=== PATIENT | female | born 1980 | race Caucasian/White ===

== ENCOUNTER 2024-11-30 20:49 | Emergency (ER) | payer BC, SELFPAY ==
[2024-11-30 20:51] VITALS: BP 140/86
[2024-11-30 23:05] VITALS: BMI 23.6
[2024-12-01 01:14] VITALS: BP 121/83
[2024-12-01 02:00] VITALS: BP 125/79
--- NOTE | 2024-12-01 02:39 | ED.MUSCINJ ---
HPI-Injury
General
Chief Complaint: Musculo-Skeletal Complaint
Source: patient
Exam Limitations: none
Time Seen by Provider: 12/01/24 01:16
Nursing documentation reviewed up to this point in time: agreed with
History of Present Illness-Injury
Initial Injury comments:
Note:
CHIEF COMPLAINT(S)
Right knee pain following a fall while dancing.
HISTORY OF PRESENT ILLNESS
The patient is a 43-year-old female with no significant past medical history who presents with right knee pain following an incident while dancing. She reports that she was performing a jump and, upon landing, her sneaker got caught, causing her
knee to be pulled under her. She experiences severe pain primarily when the knee is straightened or rotated [id number] and describes tenderness in multiple areas around the knee. The patient attempted to straighten the knee immediately after the
fall but has been unable to bear weight on it effectively since. She denies numbness or pain extending beyond the knee and has no history of previous knee injuries or back pain. The knee feels worse when bent and more comfortable when straightened.
EXTERNAL RECORDS REVIEWED
The medical team reviewed an X-ray of the patients knee, which showed no fractures but indicated effusion, suggesting possible soft tissue injury rather than bone damage.
CHRONIC MEDICAL CONDITIONS SIGNIFICANTLY AFFECTING CARE
The patient reports a history of lupus for which she takes hydroxychloroquine (Plaquenil).
SOCIAL HISTORY
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
PHYSICAL EXAM
General: Alert, no acute distress.
Skin: Warm, dry.
Head: Normocephalic, atraumatic.
Neck: Supple, trachea midline.
Eye, Ear, Nose, and Throat: Oral mucosa moist.
Cardiovascular: Normal peripheral perfusion, no edema.
Respiratory: Respirations are non-labored.
Gastrointestinal: Abdomen nondistended.
Back: Normal range of motion, Normal alignment.
Musculoskeletal: Right knee tenderness on palpation, pain on extension and lateral movement, mild effusion noted. Normal range of motion and strength in other extremities.
Neurological: Alert and oriented to person, place, time, and situation, no focal neurological deficit observed.
Psychiatric: Cooperative, appropriate mood & affect.
PLAN
- The patient will be immobilized with a knee brace and provided crutches for wwj-ydqgwu-[id number] mobility to prevent further injury.
- Recommend icing the knee to reduce swelling and advise against the use of nonsteroidal anti-inflammatory drugs (NSAIDs) other than those prescribed, given the patients lupus medication.
- Prescribe acetaminophen (Tylenol) for pain management.
- Advise follow-up with an librarian specialist for further assessment, including possible MRI to evaluate for ligamentous or meniscal injury.
- Instruct the patient on keeping the knee brace off during rest at night to avoid unnecessary discomfort.
- Discussed the importance of avoiding weight-bearing activities and minimizing knee movement to prevent additional injury.
- Encourage elevation of the knee when resting.
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
DIFFERENTIAL DIAGNOSIS
The Differential Diagnosis includes, in no particular order and is not limited to:
1. Medial Collateral Ligament (MCL) Sprain
2. Lateral Collateral Ligament (LCL) Sprain
3. Anterior Cruciate Ligament (ACL) Tear
4. Posterior Cruciate Ligament (PCL) Tear
5. Meniscal Tear
6. Patellar Dislocation
7. Knee Effusion Secondary to Trauma
8. Tibial Plateau Fracture (although less likely due to negative X-ray findings)
9. Pes Anserine Bursitis
10. Infrapatellar Fat Pad Impingement
Disposition:
SUMMARY OF ENCOUNTER
The patient is a 43-year-old female who presented to the emergency department with right knee pain following a fall while dancing. During a jump, she landed awkwardly on her right leg, causing severe immediate pain. Although she could ambulate
briefly, she experienced swelling. An X-ray was reviewed, showing no fractures but indicating effusion, suggesting a soft tissue injury. Due to the nature of her injury and symptoms, a knee brace and crutches were provided to prevent further strain
and aid mobility.
PLAN
The patient will be immobilized with a knee brace and provided crutches for mtm-ylojyl-jjwnsbq mobility. She was advised to apply ice to the knee to reduce swelling. Acetaminophen was suggested for pain management. Follow-up with an orthopedic
specialist will be necessary for further assessment, including a potential MRI to evaluate for ligamentous or meniscal injury. The patient was instructed to avoid weight-bearing activities and to elevate the knee when resting.
INDEPENDENT REVIEW OF LABS AND INTERPRETATION OF TESTS
My independent review of the X-ray indicates no fractures but shows knee effusion, consistent with a possible soft tissue injury.
PATIENT EDUCATION AND COUNSELING
The patient was educated on the importance of immobilizing the knee and using crutches to prevent further injury. She was informed about avoiding weight-bearing activities and minimizing knee movement. Information on the potential diagnosis and
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
FOLLOW-UP INSTRUCTIONS
The patient should follow up with an librarian specialist for further assessment and to determine if an MRI is needed.
MEDICATION RECONCILIATION
Acetaminophen was suggested for pain management.
MEDICAL DECISION MAKING
- Complexity of Data Reviewed: Chronic conditions affecting care include a history of lupus, managed with hydroxychloroquine. Differential diagnosis considered: MCL sprain, LCL sprain, ACL tear, PCL tear, meniscal tear, patellar dislocation, knee
effusion secondary to trauma, potential tibial plateau fracture, pes anserine bursitis, infrapatellar fat pad impingement.
- Data:
Category 1
Non-emergency department records reviewed, including X-ray findings of knee effusion without fractures.
- Risk:
Prescription medication was prescribed: Acetaminophen for pain relief.
DIAGNOSIS
1. Knee effusion secondary to trauma (M25.469).
2. Right knee internal derangement (M23.91).
Past History
Past History
ED Past Medical History: Other (Lupus, migraine headaches, polycystic kidney disease, kidney stones, polycystic ovarian disease)
ED Past Surgical History: Appendectomy and Gynecological (Uterine fibroid removal 2020)
Social History
Tobacco: Non-smoker
Alcohol: None
Personal:
Living: with family
Family History
Family History: Other (Noncontributory)
Phy Exam
Physical Exam
Physical Exam:
.
Injury Course
Orders/Labs/Results
Orders:
Orders
12/01/24 00:34
Knee, Right 4 or More Views [CR Knee- Right 4 Or More View*] Urgent
Comment:
Reason For Exam: pain/gait dysfunction
12/01/24 02:37
Crutches-Treatment ONCE
Knee Immobilizer Right-Treatme ONCE
12/01/24 02:39
Ibuprofen [Motrin] 600 mg PO NOW STA
*Radiology
Radiology exam reviewed: preliminary read by ED provider
*Pulse Oximetry
SaO2: 100
Oxygen Mode of Delivery: Room air
Patient hypoxic: no
*Critical Care Note
Total Time (30-74mins, 75-104mins- exclusive of procedures): Not Applicable
ED Attending Note
-
Portions of this chart may have been created with voice recognition software.� Occasional wrong word or��sound alike� substitutions may have occurred due to the inherent limitations of voice recognition software.
Discharge Plan
Departure
Patient Disposition: Home (Routine Discharge)
Date of Disposition: 12/01/24
Time of Disposition: 02:41
Patient with high blood pressure during this ER visit?: No
Condition: Good
Discharge Problem:
Internal derangement of knee
Instructions: How to Use Crutches, Internal Derangement of the Knee (DC), Knee Immobilizer (DC), Using Cold for Pain
Prescriptions:
New
diclofenac sodium 75 mg tablet,delayed release (DR/EC)
75 mg PO BID Qty: 10 0RF
No Action
hydrocodone-acetaminophen 1 EACH tablet
1 ea PO QIDPRN PRN (Reason: pain) Qty: 6 0RF
ketorolac 10 MG tablet
10 mg PO QIDPRN PRN (Reason: flank pain) Qty: 12 0RF
ondansetron 4 MG tablet,disintegrating
4 mg PO QIDPRN PRN (Reason: nausea/vomiting) Qty: 20 0RF
Referrals:
Joseph Nogueira MD [Active, Orthopedics]
Fidel Ziegler DO [Family Provider, Family Practice]
Activity Restrictions/Additional Instructions:
Your prescriptions were sent electronically to the pharmacy that you specified.
Thank You for choosing [facility].
It was a pleasure meeting you and taking part in your care. We hope for your continued healing and wellness.
Please read discharge instructions in their entirety. However, they are for general education and may not describe your exact diagnosis at discharge. Information on your ER visit and medical conditions were discussed with you along with appropriate
follow up information...
If indicated, please take your medications as instructed and indicated on discharge paperwork.
Please schedule a follow up appointment as directed. Call to schedule an appointment
Please return to the emergency department with ANY change in, persisting, or worsening of symptoms. If any of your symptoms do not improve, or persist, or become more severe within 6-12 hours, please return to the emergency department for further
care.
Please return to the emergency department if you develop a headache, neck pain/stiffness, fever greater than 100.4F, chest pain, shortness of breath, persistent nausea, vomiting, slurred speech, difficulty walking, numbness/tingling, weakness, signs
of infection or any other symptoms that are worrisome to you.
If you have any questions or concerns please do not hesitate to call the Hospital at .
Interventions
Interventions:
*Risk Screen - Suicide Last Done: 11/30/24 20:53
*General Assessment Last Done: 11/30/24 20:53
*Neglect/Abuse Screening Last Done: 11/30/24 20:53
*ED COVID-19 Vaccine History Last Done: 11/30/24 20:53
*ED Influenza Vaccine History Last Done: 11/30/24 20:53
*Nursing Disposition Last Done: 12/01/24 03:10
ED-Musculoskeletal Assessment Last Done: 11/30/24 23:05
Discharge Date and Time
Discharge Date/Time: 12/01/24 03:10
Print Language: SYRIAC
[2024-12-01] MEDS: MOTRIN 600 MG PO (02:50)
== END 2024-12-01 03:10 | disposition home or self-care (01) ==
LOC: EMR 20:49
PROVIDERS: EMERGENCY PHYSICIAN Student in an Organized Health Care Education/Training Program; FAMILY PHYSICIAN Family Medicine
DX: M23.91 Unspecified internal derangement of right knee (principal); S89.91XA Unspecified injury of right lower leg, initial encounter; X58.XXXA Exposure to other specified factors, initial encounter; Y93.41 Activity, dancing
CPT/HCPCS: 29505; 99283; 73564

== ENCOUNTER 2025-01-07 06:27 | Day surgery (SDC) | payer BC, SELFPAY ==
[2025-01-07] VITALS (10 sets, daily range): BP systolic 103–143; BP diastolic 60–91; BMI 24.0
[2025-01-07] MEDS: TYLENOL 1000 MG PO (11:15)
[2025-01-07] MEDS: NORMOSOL-R/PLASMALYTE-A 1000 IV (11:25)
--- NOTE | 2025-01-07 16:49 | W.IMMPOSTOP ---
Surgical Immed Post Op Note
-
Primary Surgeon: Pravin Bustillos MD
Assisting Surgeon: Cinthia Brooks PA-C
Pre-op Diagnosis: right knee anterior cruciate ligament tear, medial meniscus tear
Post-op Diagnosis: right knee anterior cruciate ligament tear, medial meniscus tear
Procedure Performed: arthroscopic right knee anterior cruciate ligament reconstruction, partial medial meniscectomy
Anesthesia Type: general, regional
Specimen / Cultures: none
Estimated Blood Loss: 50mL
Complications: none apparent
Operative Findings: ACL tear, small tear of posterior horn medial meniscus in white/white zone; intact cartilage surfaces
Implants: Arthrex 4.75 mm Swivelock, 8x20mm PEEK interference screw
Operative dictation #: [id number]
[2025-01-07] MEDS: ZOFRAN 4 MG IV (18:46)
== END 2025-01-07 19:32 | disposition home or self-care (01) ==
LOC: SDS 06:27
PROVIDERS: ATTENDING PHYSICIAN Student in an Organized Health Care Education/Training Program
DX: S83.511A Sprain of anterior cruciate ligament of right knee, initial encounter (principal); S83.241A Other tear of medial meniscus, current injury, right knee, initial encounter; X50.1XXA Overexertion from prolonged static or awkward postures, initial encounter
CPT/HCPCS: 29888; C1713